=== PATIENT | male | born 1985 | race African-American/Black ===

== ENCOUNTER 2024-11-07 12:01 | Emergency (ER) | payer OTHER ==
[~2024-11-07] VITALS: Ht 170.2 cm; Wt 102.2 kg
[2024-11-07 19:00] LABS: BASO % 0.5 % (0.0-1.0); EOS # 0.2 10^3/uL (0.0-0.5); EOS % 2.1 % (0.0-3.0); HEMATOCRIT 45.5 % (42.0-52.0); HEMOGLOBIN 15.2 g/dl (13.5-17.5); LYMPH # 2.1 10^3/uL (1.5-5.0); LYMPH % 25.7 % (24.0-44.0); MEAN CORPUSCULAR HEMOGLOBIN 26.3 pg (27.0-33.0); MEAN CORPUSCULAR HGB CONC 33.4 g/dl (32.0-36.5); MEAN CORPUSCULAR VOLUME 78.7 fl (80.0-96.0); MONO # 0.7 10^3/uL (0.0-0.8); MONO % 8.7 % (2.0-8.0); NEUTROPHILS # 5.2 10^3/uL (1.5-8.5); NEUTROPHILS % 62.6 % (36.0-66.0); PLATELET COUNT, AUTOMATED 311 10^3/uL (150-450); RED BLOOD COUNT 5.78 10^6/uL (4.30-6.10); WHITE BLOOD COUNT 8.3 10^3/uL (4.0-10.0)
[2024-11-07] MEDS ORDERED: ISOVUE-370 76% 100ML VIAL As Ordered ONE (20:26)
[2024-11-07] MEDS: cefTRIAXone SOD 2 GM in DEXTROSE 5% (D5W) ADV/MINI-BAG 50 ML IV ONE (23:14)
[2024-11-07 23:39] VITALS: BP 123/74; TEMP 98.3; O2SAT 97
== END 2024-11-07 23:42 | disposition home or self-care (01) ==
LOC: M ED 12:01
DX: L03.213 Periorbital cellulitis (principal); H00.011 Hordeolum externum right upper eyelid
CPT/HCPCS: 70481; 80047; 85025; 87040; 96365; 99284; J0696; Q9967